=== PATIENT | male | born 1940 | race Caucasian/White ===

== ENCOUNTER → 2019-12-09 | Day surgery (SDC) | payer MEDICARE, BC, OTHER ==
[2019-12-05 16:48] LABS: BASOPHILS % 0.6 % (0.0-1.0); EOSINOPHILS # (AUTO) 0.2 (0.0-0.4); EOSINOPHILS % 3.8 % (0.0-6.0); HEMATOCRIT 42.8 % (38.2-49.6); HEMOGLOBIN 13.5 g/dL (14.0-18.0); LYMPHOCYTES % 20.1 % (18.0-39.1); MEAN CORPUSCULAR HEMOGLOBIN 27.5 pg (28-32); MEAN CORPUSCULAR HGB CONC 31.5 g/dL (31-35); MEAN CORPUSCULAR VOLUME 87.2 fL (81-99); MONOCYTES # (AUTO) 0.5 (0.2-0.8); MONOCYTES % 11.2 % (4.4-11.3); NEUTROPHILS % 64.1 % (38.7-80.0); PLATELET COUNT 199 x10e3/uL (140-360); RED BLOOD COUNT 4.91 x10e6/uL (4.3-5.7); RED CELL DISTRIBUTION WIDTH 13.8 % (11.7-14.4)
[~2019-12-09] MED LIST: ACTOPLUS; ACTOPLUS MET 11 EACH PO; ASPIR 8181 MG PO; ASPIRIN LOW-STR81 MG PO; AVODART; DIOVAN; DIOVAN80 MG PO; FENOFIBRATE134 MG PO; FENTANYL CITRATE/PF 100MCG/2 ML INJ ONE; FINASTERIDE; FINASTERIDE5 MG PO; HYOSCYAMINE 0.125 MG TAB ONE; KOMBIGLYZE XR1 EAC2 PO; LANSOPRAZOLE; LIDOCAINE HCL 2% LOCAL INJ 5 ML SDV VIAL INJ ONE; METOPROLOL TART50 MG PO; MIDAZOLAM HCL 2 MG/2 ML VIAL ONE; OZEMPIC0.25 MG/0. SC; PROPOFOL IV EMULSION 10 MG/ML 20 ML VIAL ONE; SIMVASTATIN; SIMVASTATIN20 MG PO; TAMSULOSIN HCL0.4 MG PO; TAMSULOSIN PO; VALSARTAN PO
[2019-12-09 12:45] VITALS: BP 131/71
== END | disposition home or self-care (01) ==
LOC: OR 09:57
PROVIDERS: ATTEND Internal Medicine Gastroenterology
DX: Z09 Encounter for follow-up examination after completed treatment for conditions other than malignant neoplasm (principal); D12.2 Benign neoplasm of ascending colon; K62.1 Rectal polyp; K57.30 Diverticulosis of large intestine without perforation or abscess without bleeding; K64.8 Other hemorrhoids; E11.9 Type 2 diabetes mellitus without complications; I10 Essential (primary) hypertension; F41.9 Anxiety disorder, unspecified; Z01.810 Encounter for preprocedural cardiovascular examination; Z01.812 Encounter for preprocedural laboratory examination; Z11.59 Encounter for screening for other viral diseases; Z79.82 Long term (current) use of aspirin; Z79.84 Long term (current) use of oral hypoglycemic drugs; Z68.34 Body mass index [BMI] 34.0-34.9, adult
CPT/HCPCS: 36415 ×2; 45384; 45385; 82948; 85025; 88305; 93005; J2001; J2250; J2704; J3010; U0002